=== PATIENT | male | born 1940 | race Caucasian/White ===

== ENCOUNTER 2016-08-21 17:18 | Observation (INO) | payer MEDICARE, OTHER ==
[~2016-08-21] VITALS: Ht 170.2 cm; Wt 81.0 kg
[2016-08-21] MEDS ORDERED: LISI40TA PO (17:38)
[2016-08-21] MEDS ORDERED: FURO20TA3 PO (17:38)
[2016-08-21] MEDS ORDERED: NITR0.4T SL (17:38)
[2016-08-21] MEDS ORDERED: CLOP75TA PO (17:38)
[2016-08-21] MEDS ORDERED: SERT25TA3 PO (17:38)
[2016-08-21] MEDS ORDERED: ATOR80TA75 PO (17:38)
[2016-08-21] MEDS ORDERED: INSU100V8 SQ (17:38)
[2016-08-21] MEDS ORDERED: METO50TA82 PO (17:38)
[2016-08-21 18:18] LABS: IS PT STATUS REG ER OR PRE ER? YES
[2016-08-21] MEDS ORDERED: TRAZODONE 50MG TABLET PO PRN (20:00)
[2016-08-21] MEDS ORDERED: ONDANSETRON ODT 4 MG PO PRN (20:00)
[2016-08-21] MEDS ORDERED: DOCUSATE 100 MG CAPSULE PO PRN (20:00)
[2016-08-21] MEDS ORDERED: ACETAMINOPHEN 325 MG TABLET PO PRN (20:00)
[2016-08-21] MEDS ORDERED: BISACODYL 10 MG SUPP PR PRN (20:00)
[2016-08-21] MEDS ORDERED: NITROGLYCERIN 0.4 MG BOTTLE (25 TABS) SL PRN (20:00)
[2016-08-21] MEDS ORDERED: ENOXAPARIN 40 MG/0.4 ML SQ SCH (20:00)
[2016-08-21] MEDS ORDERED: LABETALOL 5MG/ML, 20ML IVPush PRN (20:00)
[2016-08-21] MEDS ORDERED: PLEASE ENTER ALLERGIES MC SCH ×2 (20:00)
[2016-08-21] MEDS ORDERED: POLYETHYLENE GLYCOL 17 GM PACKET PO PRN (20:00)
[2016-08-21] MEDS ORDERED: ATORVASTATIN 80 MG TABLET PO SCH (21:00)
[2016-08-21] MEDS: INSULIN ASPART 100 UNITS/ML, PEN SQ-INSULIN SCH (21:00)
[2016-08-21 21:35] VITALS: BP 116/68
[2016-08-21] MEDS: METOPROLOL TARTRATE 50 MG TABLET PO SCH (22:08)
[2016-08-21] MEDS: INSULIN DETEMIR 100 UNITS/ML, PEN SQ-INSULIN SCH ×2 (23:35→23:36)
[2016-08-22 00:03] LABS: IS PT STATUS REG ER OR PRE ER? NO
[2016-08-22 02:17] VITALS: BP 116/65
[2016-08-22] MEDS: INSULIN ASPART 100 UNITS/ML, PEN SQ-INSULIN SCH ×2 (07:00→13:04)
[2016-08-22 07:10] LABS: ASPARTATE AMINO TRANSFERASE 31 U/L (15-37); BLOOD UREA NITROGEN 27 mg/dL (7-18)
[2016-08-22 07:16] LABS: IS PT STATUS REG ER OR PRE ER? NO
[2016-08-22] MEDS ORDERED: REGADENOSON 0.4 MG/5 ML SYRINGE ONE (08:01)
[2016-08-22 08:07] VITALS: BP 125/73
[2016-08-22] MEDS: ASPIRIN 81 MG TABLET CHEW PO SCH ×2 (08:30→12:08)
[2016-08-22] MEDS: METOPROLOL TARTRATE 50 MG TABLET PO SCH (08:31)
[2016-08-22] MEDS ORDERED: CLOPIDOGREL 75 MG TABLET PO SCH (09:00)
[2016-08-22] MEDS ORDERED: SERTRALINE 50MG TABLET PO SCH (09:00)
[2016-08-22] MEDS ORDERED: LISINOPRIL 20 MG TABLET PO SCH (09:00)
[2016-08-22] MEDS ORDERED: FUROSEMIDE 20 MG TABLET PO SCH (09:00)
[2016-08-22 12:07] VITALS: BP 132/72
[2016-08-22 13:48] VITALS: BP 115/68
[2016-08-22] MEDS ORDERED: INSU100V8 SQ (16:53)
== END 2016-08-22 17:40 | disposition home or self-care (01) ==
LOC: ED 18:55 → EDIP 19:59 → 5SO 20:42 → DCLOUNGE 08-22 17:21
PROVIDERS: ADMIT Internal Medicine; ATTEND Internal Medicine
DX: R07.89 Other chest pain (principal); I25.2 Old myocardial infarction; I25.10 Atherosclerotic heart disease of native coronary artery without angina pectoris; E11.9 Type 2 diabetes mellitus without complications; N41.9 Inflammatory disease of prostate, unspecified; H54.8 Legal blindness, as defined in USA; H33.20 Serous retinal detachment, unspecified eye; H35.30 Unspecified macular degeneration; I11.0 Hypertensive heart disease with heart failure; F17.200 Nicotine dependence, unspecified, uncomplicated; Z95.5 Presence of coronary angioplasty implant and graft; Z98.890 Other specified postprocedural states
CPT/HCPCS: 36415; 78452; 80053; 82962; 83735; 84439; 84443; 84484; 85025; 93005; 93017; 96372; 99285; A9502; C9898; G0378; J1650; J1815; J2785

== ENCOUNTER 2017-05-23 11:35 | Day surgery (SDC) | payer OTHER ==
[~2017-05-23] VITALS: Ht 167.6 cm; Wt 83.2 kg
[~2017-05-23 11:35] MED LIST: ATOR-2 PO; CLOP75TA PO; FURO20TA3 PO; INSU100V8 SQ; LISI40TA PO; METO50TA82 PO; NITR0.4T SL; SERT25TA3 PO
[2017-05-23 13:23] VITALS: BP 131/74
[2017-05-23] MEDS ORDERED: ASPI-621 PO (13:40)
[2017-05-23] MEDS ORDERED: POTA10TA6 PO (13:43)
[2017-05-23] MEDS ORDERED: DIPHENHYDRAMINE 50 MG/ML, 1ML ONE (14:25)
[2017-05-23] MEDS ORDERED: FENTANYL PF 100 MCG/2ML ONE (14:25)
[2017-05-23] MEDS ORDERED: MIDAZOLAM 1 MG/ML, 2ML ONE (14:25)
[2017-05-23] MEDS ORDERED: VERAPAMIL 2.5 MG/ML, 2ML ONE (14:28)
[2017-05-23] MEDS ORDERED: LIDOCAINE 2%, 20ML ONE (14:28)
== END 2017-05-23 17:38 | disposition home or self-care (01) ==
LOC: CACL 11:35
PROVIDERS: ATTEND Internal Medicine Cardiovascular Disease
DX: I25.10 Atherosclerotic heart disease of native coronary artery without angina pectoris (principal); E78.2 Mixed hyperlipidemia; I13.0 Hypertensive heart and chronic kidney disease with heart failure and stage 1 through stage 4 chronic kidney disease, or unspecified chronic kidney disease; N18.9 Chronic kidney disease, unspecified; E11.22 Type 2 diabetes mellitus with diabetic chronic kidney disease; E11.65 Type 2 diabetes mellitus with hyperglycemia; Z87.891 Personal history of nicotine dependence; Z79.4 Long term (current) use of insulin; I50.9 Heart failure, unspecified; I25.2 Old myocardial infarction; Z95.5 Presence of coronary angioplasty implant and graft
CPT/HCPCS: 93458; 93571; 99156; C1769; C1894; J1200; J2250; J3010; J3490; Q9967

== ENCOUNTER → 2018-07-30 | Outpatient (CLI) | payer MEDICARE, OTHER ==
[~2018-07-30] MED LIST changes: +ASPI81TA45 PO; +POTA10TA6 PO
== END | disposition home or self-care (01) ==
LOC: CVU 08:40
PROVIDERS: ATTEND Internal Medicine Cardiovascular Disease
DX: I35.1 Nonrheumatic aortic (valve) insufficiency (principal); I65.23 Occlusion and stenosis of bilateral carotid arteries; I25.2 Old myocardial infarction; E78.5 Hyperlipidemia, unspecified; R53.1 Weakness; I10 Essential (primary) hypertension; Z87.891 Personal history of nicotine dependence
CPT/HCPCS: 93306; 93880